=== PATIENT | male | born 2005 | race Caucasian/White ===

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

== ENCOUNTER 2024-08-16 14:00 | Outpatient (RCR) | payer OTHER, SELFPAY ==
--- NOTE | 2024-07-02 14:18 | PC.NURSE ---
Pt called as he is unable to get out of work for his lab draw appointment today. Michael will come to [facility] tomorrow, 07/02/2024 at 10:00 AM for his lab draw. HEAVEN Hermosillo will bring all lab orders/stickers to lab department as they were already printed.
--- NOTE | 2024-07-22 14:58 | ONC.NURNOTE ---
Left message for patient to call and reschedule lab appointment and then 2 weeks later MD follow up
[2024-08-06 00:50] LABS: B2Glycoprotein 1, IgG Antibody <10 SGU (<=20); B2Glycoprotein 1, IgM Antibody <10 SMU (<=20)
[2024-08-06 07:19] LABS: Cardiolipin Antibody IgA <10 APL (<=11); Cardiolipin Antibody IgG <10 GPL (<=14); Cardiolipin Antibody IgM <10 MPL (<=12)
[2024-08-06 14:42] LABS: Anti-Xa Qualitative Not Performed (Not Present); Anticoagulant Medication N Not Performed (Not Performed); Hexagonal Phospholipid Confirm Not Performed s (<=7.9); Neutralized PTT-LA Not Performed (<=1.20); Neutralized dRVVT Screen Not Performed (<=1.20); PTT-LA Ratio 0.82 (<=1.20); Thrombin Time (TT) Not Performed s (<=19.5); dRVVT 1:1 Mix Ratio Not Performed (<=1.20); dRVVT Confirmation Not Performed (<=1.20); dRVVT Screen Ratio 0.92 (<=1.20)
[2024-08-06 20:39] LABS: Antithrombin, Enzymatic 115 % (76-128)
[2024-08-06 22:00] LABS: Protein C Functional 133 % (83-168); Protein S Functional 107 % (66-143)
[2024-08-08 13:24] LABS: FACV Specimen Whole Blood; Factor V Leiden (F5) Mutation Heterozygous
[2024-08-09 09:35] LABS: PT PCR Specimen Whole Blood; Prothrombin(F2)G20210A Variant Negative
[2024-08-16 15:06] LABS: Basophils Absolute Auto 0.05 K/uL (0.00-0.30); Basophils Percent Auto 0.7 % (0.0-3.0); Eosinophils Absolute Auto 0.04 K/uL (0.00-0.50); Eosinophils Percent Auto 0.6 % (0.0-7.0); Hematocrit 47.3 % (37.0-53.0); Hemoglobin* 15.6 gm/dL (13.5-17.5); Immature Granulocytes Abs Auto 0.06 K/uL (0.00-0.30); Immature Granulocytes Pct Auto 0.8 %; Lymphocytes Absolute Auto 1.82 K/uL (0.90-2.90); Lymphocytes Percent Auto 25.3 % (20-44); Mean Corpuscular HGB Conc 33 gm/dL (32-36); Mean Corpuscular Hemoglobin 29 pg (26-34); Mean Corpuscular Volume 87 fL (80-100); Monocytes Percent Auto 6.5 % (0.0-11.0); Neutrophils Absolute Auto 4.75 K/uL (1.7-7.0); Neutrophils Percent Auto 66.1 % (42.0-72.0); Platelet Count* 244 K/uL (140-440); RDW Coefficient of Variation % 12.6 % (11.5-15.5); Red Blood Count 5.45 m/uL (4.30-5.90); White Blood Count* 7.19 K/uL (4.50-11.00)
[2024-08-16 15:13] LABS: Slide Review Reflex No
[2024-08-16 15:40] LABS: Iron* 148 ug/dL (49-181)
[2024-08-16 15:49] LABS: Percent Iron Saturation 43 % (20-50); Total Iron Binding Capacity 343 ug/dL (261-462)
== END 2025-01-30 23:59 | disposition home or self-care (01) ==
LOC: CCIC 14:00
PROVIDERS: PCP Physician Assistant Medical; Visit Provider Internal Medicine Hematology & Oncology
DX: R53.83 Other fatigue (principal); D68.51 Activated protein C resistance; Z83.2 Family history of diseases of the blood and blood-forming organs and certain disorders involving the immune mechanism
CPT/HCPCS: 36415; 81240; 81241; 82728; 83540; 83550; 85025; 85300; 85303; 85306; 85520; 85525; 85598; 85610; 85613; 85670; 85730; 86146; 86147; 99202; 99203